=== PATIENT | male | born 1955 | race Caucasian/White ===

== ENCOUNTER 2025-01-02 09:29 | Emergency (ER) | payer MEDICARE, OTHER, SELFPAY ==
[2025-01-02] VITALS (10 sets, daily range): BP systolic 119–128; BP diastolic 69–83; PULSE 61–65; BMI 28.4
[2025-01-02 09:52] LABS: % Basophils 0.9 % (0-2); % Eosinophils 3.7 % (0-6); % Immature Granulocytes 0.5 % (0-0.5); % Lymphocytes 34.3 % (20.5-51.1); % Neutrophils 49.6 % (42.2-75.2); Absolute Basophils 0.1 10^3/uL (0-0.2); Absolute Eosinophils 0.2 10^3/uL (0-0.7); Absolute Monocytes 0.6 10^3/uL (0.1-0.6); Absolute Neutrophils 2.9 10^3/uL (1.4-6.5); Hematocrit 40.8 % (39.0-52.0); Hemoglobin 14.5 g/dL (13.0-18.0); Mean Corp Hgb Conc. 35.5 g/dL (33.0-37.0); Mean Corpuscular Hgb 31.5 pg (27.0-31.0); Mean Corpuscular Volume 88.7 fL (80.0-94.0); Mean Platelet Volume 9.7 fL (7.4-10.4); Nucleated Red Blood Cells % 0 % (-); Platelet Count 226 10^3/uL (130-400); White Blood Cell Count 5.8 10^3/uL (4.8-10.8)
--- NOTE | 2025-01-02 10:03 | ED.GENMED ---
History of Present Illness
General
Chief Complaint: Fainting/Passed Out
Source: patient and spouse
Exam Limitations: none
Time Seen by Provider: 01/02/25 09:42
Nursing documentation reviewed up to this point in time: agreed with
History of Present Illness
History of Present Illness:
Patient with history of hypercholesterolemia on Crestor, presents to ED after witnessed syncopal episode while having breakfast at [employer] [place], shortly prior to arrival. Patient reports waking up around 6 AM this morning without any symptoms. He
proceeded to drive to [employer] with his , where they picked up breakfast sandwich and coffee. Afterwards, drove to [facility], where he sat down on the bench and had breakfast sandwich with his coffee, with his at his side.
Approximately 15 to 20 minutes after having sat down, spouse looked over and patient slumped over to the side and fell off the bench. He woke up immediately and sat back down and asked his 'what happened'. Immediately afterwards, patient
passed out again, with his head landing on the table. Patient did not fall of the bench at this time. Once again, within seconds, patient woke up and asked what happened. This is when spouse asked someone at the park for assistance, who called
911. Since then, patient has not lost consciousness. At the time of evaluation ED, patient states that he is back to baseline and has no complaints. Prior to passing out, patient does report feeling 'out of sorts'. Denies headache. Denies chest
pain. Denies chest palpitation. Denies nausea. Immediate upon waking up from his second syncopal episode, patient does report feeling sweaty and proceeded to have 1 vomiting episode. Denies previous history of similar symptoms. Denies recent
illness. Denies recent surgery. Denies back pain or leg swelling. Patient does report having travel down to [place] 2 months ago via airplane.
Review of Systems
Review of Systems
Allergies reviewed?: Yes
All Other Systems: ROS reviewed and negative except as documented in HPI and ROS
Constitutional: Reports no symptoms
Respiratory: Reports no symptoms; Denies trouble breathing
Cardiac: Reports diaphoresis and syncope; Denies chest pain or palpitations
ABD/GI: Reports nausea and vomiting; Denies abdominal pain
: Reports no symptoms; Denies incontinence
Musculoskeletal: Reports no symptoms
Skin: Reports no symptoms
Neurological: Reports dizzy; Denies headache, weakness or numbness
Phy Exam
Physical Exam
Physical Exam:
Physical Exam
General: no apparent distress, not acutely ill. afebrile
Head: nc/at. eomi
Neck: supple. no meningeal signs.
Heart: s1/s2 regular rate and rhythm
Lungs: no acute respiratory distress. clear bilaterally
Abdomen: normal bowel sounds. not tender.
Neuro: alert and oriented x 3. no focal neurological deficits. normal speech. normal gait
Skin: no rash
Psychiatric: well kept. interactive and cooperative
Extremities: no edema. no calf tenderness.
Course
Orders/Labs/Results
Orders:
Orders
01/02/25
Electrocardiogram (*1) Stat
Comment: DONE EMR
01/02/25 09:31
Electrocardiogram (*1) Urgent
Reason for Study: Chest Pain
Cardiac Monitoring- Treatment ONCE
EKG- Treatment ONCE
IV Insert/Care/Rem.- Treatment PRN
Pulse Ox/spot Check [RESP] Urgent
Quantity: 1
Special Instructions: ON ROOM AIR
01/02/25 09:37
Complete Blood Count/With Diff Urgent
Comprehensive Metabolic Panel Urgent
Troponin I Urgent
01/02/25 10:28
Orthostatic VS- Treatment ONCE
01/02/25 10:31
D-Dimer Urgent
01/02/25 12:23
0.9% Sodium Chloride 500 ml [Nss] 500 ml IV BOLUS
Abnormal Lab Results
01/02/25
09:37
RBC 4.60 L 10^6/uL
(4.70-6.10)
MCH 31.5 H pg
(27.0-31.0)
Monocytes % 11.0 H %
(1.7-9.3)
Chloride 111 H mmol/L
(98-107)
BUN 27 H mg/dl
(9-20)
Glucose 135 H mg/dl
(70-99)
01/02/25 09:37
01/02/25 09:37
Vital Signs
Initial and Last Documented VS:
Initial Vital Signs
Temp Pulse Resp Pulse Ox
97.7 F 57 16 98
01/02/25 09:32 01/02/25 09:32 01/02/25 09:32 01/02/25 09:32
Last Documented Vital Signs
Temp Pulse Resp BP Pulse Ox
97.7 F 67 12 121/71 99
01/02/25 09:32 01/02/25 13:00 01/02/25 13:00 01/02/25 13:00 01/02/25 13:00
MDM/Problems Addressed
MDM/Problems Addressed:
Patient with an unremarkable workup in ED, including blood work and EKG, as well as orthostatic vital signs. Patient remains asymptomatic during observation. Discussed number of different potential etiologies with patient and spouse. In addition,
discussed with on-call cardiology, , regarding patient's presentation, who agrees with patient's probable vagal response and feels that patient would not benefit from admission to the hospital, especially as there is no arrhythmia noted
on the monitor during observation ED. As such, decision made to discharge patient home with recommendation to follow-up with cardiology for an outpatient consultation, including potential echocardiogram as well as Holter monitor. Patient and
spouse expressed understand time of discharge. Advised to return to ED with recurrent or worsening symptoms.
*EKG
Interpreted by ED Provider?: Yes
EKG Intrepretation Date: 01/02/25
Heart Rate: 59
Rate: bradycardiac
Rhythm: sinus
[place]: normal axis
Interval: normal interval
QRS Pattern: right bundle branch block
*Critical Care Note
Total Time (30-74mins, 75-104mins- exclusive of procedures): Not Applicable
ED Attending Note
-
Portions of this chart may have been created with voice recognition software.� Occasional wrong word or��sound alike� substitutions may have occurred due to the inherent limitations of voice recognition software.
Discharge Plan
Departure
Patient Disposition: Home (Routine Discharge)
Date of Disposition: 01/02/25
Time of Disposition: 13:05
Patient with high blood pressure during this ER visit?: Yes
Condition: Fair
Discharge Problem:
Syncope
Instructions: Syncope (Fainting) (DC), Vasovagal Response (DC)
Prescriptions:
No Action
rosuvastatin 10 mg Tablet
10 mg PO DAILY
Referrals:
José Antonio Barron MD [Family Provider, Internal Medicine]
Gil Downs MD [Active, Cardiology]
Activity Restrictions/Additional Instructions:
As discussed, please follow-up with your primary care physician and/or referred to retail shift leader for further evaluation and treatment. Please return to ED with recurrent or worsening symptoms.
Interventions
Interventions:
*Risk Screen - Suicide Last Done: 01/02/25 09:36
*General Assessment Last Done: 01/02/25 13:14
*Neglect/Abuse Screening Last Done: 01/02/25 09:36
*ED- Fall Risk Assessment Last Done: 01/02/25 13:14
*ED COVID-19 Vaccine History Last Done: 01/02/25 09:36
*Nursing Disposition Last Done: 01/02/25 13:14
ED- Cardiac Assessment Last Done: 01/02/25 10:25
ED- Neurological Assessment Last Done: 01/02/25 10:25
Discharge Date and Time
Discharge Date/Time: 01/02/25 13:20
Print Language: ERITREAN
[2025-01-02 10:08] LABS: ALT (SGPT) 28 U/L (0-50); AST (SGOT) 25 U/L (17-59); Albumin 4.6 g/dl (3.5-5.0); Alkaline Phosphatase 57 U/L (38-126); Blood Urea Nitrogen 27 mg/dl (9-20); Calcium 9.3 mg/dl (8.4-10.2); Carbon Dioxide 25 mmol/L (22-30); Chloride 111 mmol/L (98-107); Estimated Creatinine Clearance 83 ml/min; Glucose 135 mg/dl (70-99); Potassium 4.1 mmol/L (3.5-5.1); Sodium 143 mmol/L (135-145); eGFR > 60.00
[2025-01-02 10:19] LABS: Troponin I < 0.012 ng/ml
[2025-01-02 11:05] LABS: D-Dimer < 0.27 ug/mlFEU (0.00-0.50)
[2025-01-02] MEDS: NSS 500 IV (12:33)
== END 2025-01-02 13:20 | disposition home or self-care (01) ==
LOC: EMR 09:29
PROVIDERS: Physician Assistant Medical; EMERGENCY PHYSICIAN Emergency Medicine; FAMILY PHYSICIAN Internal Medicine
DX: R55 Syncope and collapse (principal); E78.00 Pure hypercholesterolemia, unspecified; I45.10 Unspecified right bundle-branch block; Z79.899 Other long term (current) drug therapy
CPT/HCPCS: 96360; 99284; 80053; 84484; 85025; 85379; 93005